=== PATIENT | female | born 1990 | race Caucasian/White ===

== ENCOUNTER 2016-09-19 17:53 | Emergency (ER) | payer SELFPAY ==
[~2016-09-19] VITALS: Ht 165.1 cm; Wt 90.5 kg
[2016-09-19] MEDS ORDERED: DiphenhydrAMINE HCL 25 MG CAPSULE PO ONE (18:45)
[2016-09-19] MEDS ORDERED: DEXAMETHASONE SOD PHOS 4 MG/ML 5 ML VIAL IM ONE (18:45)
[2016-09-19 18:49] VITALS: BP 129/79
== END 2016-09-19 19:02 | disposition home or self-care (01) ==
LOC: EMS 17:54
DX: T78.40XA Allergy, unspecified, initial encounter (principal); Y92.89 Other specified places as the place of occurrence of the external cause
CPT/HCPCS: 96372; 99283; J1100

== ENCOUNTER 2017-05-21 08:53 | Emergency (ER) | payer SELFPAY ==
[~2017-05-21] VITALS: Ht 165.1 cm; Wt 90.9 kg
[2017-05-21 10:38] LABS: HCG,QUAL RESULT NEGATIVE (NEGATIVE)
[2017-05-21 10:45] VITALS: BP 129/76
[2017-05-21 10:48] LABS: AMPHET/METH SCREEN,URINE NEGATIVE (NEGATIVE); BARBITURATE SCREEN, URINE NEGATIVE (NEGATIVE); BENZODIAZEPINES SCREEN,URINE NEGATIVE (NEGATIVE); CANNABINOID SCREEN,URINE NEGATIVE (NEGATIVE); COCAINE SCREEN,URINE NEGATIVE (NEGATIVE); METHADONE SCREEN, URINE NEGATIVE (NEGATIVE); OPIATE SCREEN,URINE NEGATIVE (NEGATIVE)
[2017-05-21 10:54] LABS: PHENCYCLIDINE SCREEN,URINE NEGATIVE (NEGATIVE)
[2017-05-21] MEDS ORDERED: IBUPROFEN 600 MG TABLET PO ONE (11:00)
== END 2017-05-21 11:14 | disposition home or self-care (01) ==
LOC: EMS 08:54
DX: M94.0 Chondrocostal junction syndrome [Tietze] (principal); R07.9 Chest pain, unspecified
CPT/HCPCS: 93005; 99285